=== PATIENT | female | born 1975 | race Two or more races ===

== ENCOUNTER 2022-08-13 11:31 | Emergency (ER) | payer OTHER ==
[2022-08-13] MEDS ORDERED: Octyl 2-Cyanoacrylate 1 g/1 mL 1 APPLIC PEN TOP STA (12:24)
== END 2022-08-13 12:45 | disposition home or self-care (01) ==
LOC: MW.ED 11:31
DX: S01.511A Laceration without foreign body of lip, initial encounter (principal); S50.311A Abrasion of right elbow, initial encounter; V19.9XXA Pedal cyclist (driver) (passenger) injured in unspecified traffic accident, initial encounter
CPT/HCPCS: 12011; 99282; A9270; 99283

== ENCOUNTER 2023-07-04 19:55 | Emergency (ER) | payer OTHER | END 2023-07-04 22:17 | disposition home or self-care (01) | LOC: MW.ED 19:55 | DX: S60.452A Superficial foreign body of right middle finger, initial encounter (principal); Z88.0 Allergy status to penicillin; Z88.8 Allergy status to other drugs, medicaments and biological substances; Z79.899 Other long term (current) drug therapy; Z75.8 Other problems related to medical facilities and other health care; W19.XXXA Unspecified fall, initial encounter | CPT/HCPCS: 73120-26-RT; 73120-RT; 99282; 99283 ==